=== PATIENT | female | born 1975 | race Caucasian/White ===

== ENCOUNTER 2022-07-08 07:19 | Day surgery (SDC) | payer BC ==
[~2022-07-08 07:19] MED LIST: Lactated Ringers 1,000 ML IV SCH
[2022-07-08] MEDS ORDERED: Magnesium Sulfate (4.06 MEQ/ML) 5 GM/10 ML SDV ONE (09:50)
[2022-07-08] MEDS ORDERED: propofoL 100 ML ONE (09:55)
[2022-07-08] MEDS ORDERED: Lidocaine 2% 5 ML SDV ONE (11:16)
== END 2022-07-08 12:30 | disposition home or self-care (01) ==
LOC: MW.SDS 07:19
PROVIDERS: ATTEND Surgery
DX: Z12.11 Encounter for screening for malignant neoplasm of colon (principal); D12.4 Benign neoplasm of descending colon; Z86.010 Personal history of colon polyps; Z79.899 Other long term (current) drug therapy; Z88.2 Allergy status to sulfonamides; Z98.890 Other specified postprocedural states
CPT/HCPCS: 45385; J2704; J3475; J3490